=== PATIENT | male | born 1955 | race African-American/Black ===

== ENCOUNTER 2021-09-30 02:30 | Emergency (ER) | payer OTHER ==
[~2021-09-30] VITALS: Ht 182.9 cm; Wt 115.0 kg
[2021-09-30 03:31] LABS: BASOPHILS % 0.6 % (0.0-2.0); EOSINOPHILS % 1.2 % (0.0-5.0); HEMATOCRIT. 36.9 % (42.0-52.0); HEMOGLOBIN. 12.2 g/dL (14.0-18.0); LYMPHOCYTES % 15.5 % (20.0-50.0); MEAN CORPUSCULAR HEMOGLOBIN 31.2 pg (28.0-32.0); MEAN CORPUSCULAR VOLUME 94.7 fL (80.0-94.0); MEAN PLATELET VOLUME 8.6 fl (7.4-10.4); MONOCYTES % 9.6 % (2.0-8.0); NEUTROPHILS % 73.1 % (40.0-76.0); PLATELET 268 x1000/uL (130-400); RED CELL DISTRIBUTION WIDTH 14.4 % (11.6-14.6)
[2021-09-30 03:42] LABS: CHLORIDE 107 mEq/L (98-107)
[2021-09-30 05:00] VITALS: BP 156/80
== END 2021-09-30 05:08 | disposition home or self-care (01) ==
LOC: ER 02:30
DX: E11.649 Type 2 diabetes mellitus with hypoglycemia without coma (principal)
CPT/HCPCS: 36415; 80048; 82962; 85025; 99283